=== PATIENT | female | born 1965 | race Two or more races ===

== ENCOUNTER 2018-12-07 00:09 | Emergency (ER) | payer OTHER ==
[~2018-12-07] VITALS: Ht 167.6 cm; Wt 108.9 kg
[2018-12-07 00:19] VITALS: Ht 167.6 cm; Wt 108.9 kg
[2018-12-07 05:54] VITALS: BP 129/83
== END 2018-12-07 05:54 | disposition home or self-care (01) ==
LOC: ED 00:09
DX: S76.011A Strain of muscle, fascia and tendon of right hip, initial encounter (principal); S96.911A Strain of unspecified muscle and tendon at ankle and foot level, right foot, initial encounter; S83.91XA Sprain of unspecified site of right knee, initial encounter; W18.30XA Fall on same level, unspecified, initial encounter; Y93.89 Activity, other specified; Y92.89 Other specified places as the place of occurrence of the external cause; Y99.8 Other external cause status; I10 Essential (primary) hypertension; E11.9 Type 2 diabetes mellitus without complications

== ENCOUNTER 2018-12-17 16:14 | Emergency (ER) | payer OTHER ==
[~2018-12-17] VITALS: Ht 167.6 cm; Wt 102.1 kg
[2018-12-17 16:22] VITALS: Ht 167.6 cm; Wt 102.1 kg
[2018-12-17 17:32] VITALS: BP 133/91
== END 2018-12-17 17:32 | disposition home or self-care (01) ==
LOC: ED 16:14
DX: G51.0 Bell's palsy (principal); G89.29 Other chronic pain; I10 Essential (primary) hypertension; E11.9 Type 2 diabetes mellitus without complications